=== PATIENT | female | born 1970 | race Caucasian/White ===

== ENCOUNTER 2017-02-13 19:57 | Emergency (ER) | payer BC ==
[2017-02-13 20:08] VITALS: BP 187/94; BMI 49.9
--- NOTE | 2017-02-13 20:51 | DR.EXTPAIN ---
HPI - Time seen Time seen: 20:45 - PCP Primary Care Physician: [facility] - HPI Comment HPI Comment: RIGHT NEE PAIN. SWELLING AND KNOT POSTERIOR ASPECT RT KNEE. RECENT SURGERY. - Complaint/Symptoms Chief Complaint Doctor Comments: RIGHT KNEE PAIN. KNOT ON POSTERIOR ASPECT RIGHT KNEE. Chief Complaint:: "MY KNEE HAS BEEN HURTING FOR A FEW DAYS, I WOKE UP THIS MORNING AND COULD HARDLY WALK. THIS AFTERNOON, IT BUCKLED ON ME AND ALL 300LBS FELL ON IT AND IT HURTS. I FEEL A KNOT BEHIND MY KNEE." - Nurses notes reviewed Nurses Notes Review: Yes - Source History Provided: Patient - Mode of arrival Mode of Arrival: Wheelchair - Timing Onset of Chief Complaint: 02/13/17 - Context History of: None - Associated signs and symptoms Associated Signs and Symptoms: Pain, Swelling PMH - PMH Past Medical History: Yes Past Medical History: Anxiety, Arthritis Past Surgical History: Yes Surgical History: Cholecystectomy, Tonsillectomy Past Surgical History Comment: TUBALIGATION. ADENOIDS - Family History History of Family Medical Conditions: Yes Family Medical History: Diabetes Mellitus Family Medical History Comment: OSTEOARTHRITIS - Social History Does patient currently use any type of tobacco product: No Have you used tobacco products in the last 12 months: No Type of Tobacco Use: None Does any household member use tobacco: No Alcohol Use: None Do you use any recreational Drugs:: No Lives With: Spouse Lives Where: Home - infectious screening Have you traveled outside the country in the last 6 months?: No Isolation: Standard ROS - Review of Systems Constitutional: No Symptoms Reported Eyes: No Symptoms Reported ENTM: No Symptoms Reported Respiratoy: Short of Breath. negative: Productive Cough, Non-Productive Cough, Wheezing, Hemoptysis Cardiovascular: No Symptoms Reported Gastrointestinal/Abdominal: No Symptoms Reported Genitourinary: No Symptoms Reported Neurological: No Symptoms Reported Musculoskeletal: No Symptoms Reported Integumentary: No Symptoms Reported Hematologic/Lymphatic: No Symptoms Reported Endocrine: No Symptoms Reported All Other Systems: Reviewed and Negative PE - Vital Signs Vitals: Temperature 98.0 F Pulse Rate 74 Respiratory Rate 18 Blood Pressure 187/94 O2 Sat by Pulse Oximetry 95 - General Limitations: No Limitations General Appearance: Alert - Head Head Exam: Normal Inspection - ENT ENT Exam: Normal External Ear Exam - Neck Neck Exam: Normal Inspection - Chest Chest Inspection: Symmetric Chest Wall Rise - Respiratory Respiratory Exam: Normal Lung Sounds Bilat Respiratory Exam: Bilateral Clear to Auscultation - Cardiovascular Cardiovascular Exam: Regular Rate, Normal Rhythm, Normal Heart Sounds - Abdominal Exam Abdominal Exam: Normal Bowel Sounds - Extremities Extremities Exam: Tenderness (TENDERNESS ) MDM - Differential Diagnosis Differential Diagnosis: Fracture, Sprain Course - Treatment Treatment: SEE ORDERS - Reevaluation 1st: Improved (PAIN DECREASING WITH MED) - Education/Counseling Education/Counseling: Patient, Education Educated On: Treatment, Diagnosis, Needs for Follow Up ROR - Labs Reviewed Laboratory: D-Dimer 169 ng/mL (0-400) 02/13/17 21:05 - XRAY XRAY Interpreted by: Radiologist XRAY Findings: REPORT DISCUSS WITH PATIENT. - Diagnosis Discharge Problem: Phlebitis Right knee pain Qualifiers: Chronicity: acute Qualified Code(s): M25.561 - Pain in right knee - Discharge Plan Disposition: 01 HOME, SELF-CARE Condition: Stable Prescriptions: Ibuprofen [MOTRIN TAB 800 MG *] 800 mg PO Q8H PRN #20 tab PRN Reason: Pain/Inflammation Tramadol HCl 50 mg PO TID PRN #15 tablet PRN Reason: - Follow ups/Referrals Follow ups/Referrals: BREANN GARAY [Primary Care Provider] - 2 days - Instructions Instructions: Knee Pain, [id number] Additional Instructions: RETURN TO ED IF WORSE.
[2017-02-13] MEDS ORDERED: TORADOL 60 MG VIAL IM ONE (20:52)
[2017-02-13] MEDS ORDERED: TORADOL 60 MG VIAL ONE (21:08)
--- NOTE | 2017-02-13 21:46 | VAS ---
HISTORY: Left leg pain. Clinical concern for left lower extremity deep venous thrombosis. Study: Left lower extremity duplex venous ultrasound. Comparison: None. TECHNIQUE: Multiple malik scale and color flow Doppler images of the deep venous system were obtained of the left lower extremity. FINDINGS: The deep venous system of the left lower extremity was evaluated from the level of the common femoral vein through the popliteal vein. The distal superficial femoral vein was not well visualized seconda ry to patient body habitus. Otherwise, normal color flow and augmentation can be observed. In addit ion, normal compression is seen throughout the visualized portions of the deep venous system. IMPRESSION: Negative for left lower extremity DVT. It should be noted that the distal superficial femoral vein wa s not well visualized secondary to patient body habitus. Reported By:
--- NOTE | 2017-02-13 21:53 | RAD ---
HISTORY: Acute on subacute knee pain status post fall with posterior swelling Study: Two views left knee Comparison: None Findings: No evidence for acute cortical disruption or dislocation. There is moderate tricompartmental DJD. T here is no large effusion. No destructive osseous lesions are seen. IMPRESSION: Moderate tricompartmental DJD without acute bony radiographic abnormality. Reported By:
== END 2017-02-13 23:00 | disposition home or self-care (01) ==
LOC: ER 20:13
DX: I80.9 Phlebitis and thrombophlebitis of unspecified site (principal); M25.561 Pain in right knee
CPT/HCPCS: 29530; 36415; 73560; 85378; 93971; 96372; 99283; J1885

== ENCOUNTER → 2017-06-12 | Outpatient (CLI) | payer BC | LOC: RT 15:02 | PROVIDERS: ATTEND Psychiatry & Neurology Neurology | DX: G56.03 Carpal tunnel syndrome, bilateral upper limbs (principal) | CPT/HCPCS: 95911 ==